=== PATIENT | male | born 1965 | race Caucasian/White ===

== ENCOUNTER 2018-11-30 10:44 | Outpatient (CLI) | payer BC ==
--- NOTE | 2018-11-30 13:24 | Diagnostic Imaging Report ---
Indication: Abnormal thyroid function tests Technique: Grayscale and duplex images of the thyroid Comparison: none Findings: Right thyroid lobe measures 3.8 cm length x one cm AP. Left thyroid lobe measures 3.8 cm length x 1.4 cm AP. Both thyroid lobes demonstrate normal echogenicity. The left thyroid lobe demonstrates contour lobulation without definite discrete mass or nodule. The right thyroid lobe demonstrates a 2 x 3 mm cystic mass posteriorly in the lower pole. Impression: 3 mm cystic TI RADS-1 lesion in the right lower pole. No further follow-up necessary Lobulated left thyroid contour without discrete mass or nodule
== END 2018-11-30 12:44 | disposition home or self-care (01) ==
LOC: ULS 10:44
DX: E04.1 Nontoxic single thyroid nodule (principal); R94.6 Abnormal results of thyroid function studies
CPT/HCPCS: 76536